=== PATIENT | male | born 1985 | race Caucasian/White ===

== ENCOUNTER 2017-07-26 15:46 | Emergency (ER) | payer MEDICAID, OTHER | END 2017-07-26 18:42 | disposition home or self-care (01) | LOC: FTE 15:46 | DX: S02.40CA Maxillary fracture, right side, initial encounter for closed fracture (principal); S02.2XXA Fracture of nasal bones, initial encounter for closed fracture; Y04.8XXA Assault by other bodily force, initial encounter | CPT/HCPCS: 70486; 99284-25 ==